=== PATIENT | female | born 1995 | race American Indian/Alaskan Native ===

== ENCOUNTER 2020-04-19 14:31 | Emergency (ER) | payer OTHER ==
[2020-04-19 14:46] VITALS: BP 116/67
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
== END 2020-04-19 17:19 | disposition home or self-care (01) ==
LOC: EDBD → ED 14:31
DX: S49.91XA Unspecified injury of right shoulder and upper arm, initial encounter (principal); M25.521 Pain in right elbow; R07.89 Other chest pain; Z79.899 Other long term (current) drug therapy; V49.49XA Driver injured in collision with other motor vehicles in traffic accident, initial encounter; W22.10XA Striking against or struck by unspecified automobile airbag, initial encounter; Y93.89 Activity, other specified; Y92.410 Unspecified street and highway as the place of occurrence of the external cause; Y99.8 Other external cause status